=== PATIENT | female | born 1995 | race Caucasian/White ===

== ENCOUNTER 2020-04-28 02:30 | Emergency (ER) | payer SELFPAY ==
[~2020-04-28] VITALS: Ht 157.5 cm; Wt 100.0 kg
[2020-04-28 02:36] VITALS: BP 148/101; Ht 157.5 cm; Wt 100.0 kg
[2020-04-28] MEDS ORDERED: HYDROCODON-ACE1 EAC2 PO (03:49)
== END 2020-04-28 04:17 | disposition home or self-care (01) ==
LOC: D.ER 02:30
DX: S82.851A Displaced trimalleolar fracture of right lower leg, initial encounter for closed fracture (principal); W01.0XXA Fall on same level from slipping, tripping and stumbling without subsequent striking against object, initial encounter; Y93.9 Activity, unspecified; Y92.9 Unspecified place or not applicable